=== PATIENT | female | born 1960 | race Caucasian/White ===

== ENCOUNTER 2017-03-12 08:25 | Day surgery (SDC) | payer OTHER ==
[~2017-03-12] VITALS: Ht 165.1 cm; Wt 81.0 kg
[~2017-03-12 08:25] MED LIST: 0.9% Sodium Chloride 1,000 ML IV SCH; CHOL500011 PO; CRAN500T2 PO; GARL580C PO; GLIM2TAB2 PO; HYG25 PO; LACT1CAP65 PO; METF500T4 PO; Sodium Chloride LOK Flush 10 mL Syringe IV PRN; TYRO500C2 PO; VITA150T PO; [UNRECOGNIZED DRUG - CODE] PO; fentaNYL-PF 50 mCg/mL 2 mL Inj IVPUSH PRN
[2017-03-12 08:40] VITALS: BP 137/83; PULSE 87; RESP 14; O2SAT 98
[2017-03-12 09:21] VITALS: BP 135/83; PULSE 14; RESP 14; O2SAT 96
[2017-03-12 09:30] VITALS: BP 127/70; PULSE 88; RESP 14; O2SAT 97
[2017-03-12 09:34] VITALS: BP 121/75; PULSE 89; RESP 14; O2SAT 96
--- NOTE | 2017-03-12 09:34 | ENDO ---
[address] [address] ENDOSCOPY PROCEDURE PATIENT: CRICKET SEGOVIA : 1960 MR#: [id number] ADMIT: 03/12/2017 JOB ID: [id number] PROCEDURE: Esophagogastroduodenoscopy. INDICATION: Epigastric pain. ASA CLASSIFICATION: 2. MALLAMPATI SCORE: 2. MEDICATIONS: Versed 5 mg, fentanyl 100 mcg. INSTRUMENT USED: [id number]. PROCEDURE DETAILS: After informed consent was obtained, the patient was brought into the GI suite, where she was placed on oxygen via nasal cannula and monitored with continuous pulse oximeter, telemetry, and blood pressure monitoring. A time-out was performed. Then, she was placed in a left lateral decubitus position. Medications were administered for sedation. A bite block was placed. The standard EGD scope was then inserted through the bite block and advanced under direct visualization to the second portion of duodenum without difficulty. FINDINGS: 1. Normal-appearing duodenal bulb, first and second portion. Multiple random biopsies were obtained. 2. Normal-appearing pylorus, antrum and gastric body. 3. Retroflexed views in the gastric body revealed a normal-appearing cardia and fundus. 4. Multiple random biopsies were obtained throughout the antrum and body of stomach. 5. The GE junction was at approximately 39 cm, was slightly irregular. Multiple biopsies were obtained in the distal esophagus. There was also mild inflammation with a superficial erosion noted in the distal esophagus suggestive of mild esophagitis. The remainder of the esophagus otherwise unremarkable. IMPRESSION: Mild esophagitis. Otherwise normal exam to second portion of duodenum. RECOMMENDATIONS: 1. Await biopsy results. 2. Continue PPI daily. 3. Follow up in GI clinic. COMPLICATIONS: None. ESTIMATED BLOOD LOSS: Less than 5 mL.
--- NOTE | 2017-03-13 16:18 | PATH ---
SURGICAL PATHOLOGY Attending Physician:Jc Aguayo CASE STATUS: Signed Out PATIENT NAME: CRICKET SEGOVIA PID: [id number] : 1960 DATE COLLECTED:03/12/2017 16:24 SPECIMEN: 1: Duodenum, Biopsy 2: Duodenum, Biopsy 3: Gastric, Biopsy 4: Esophagus, Biopsy CLINICAL HISTORY: 1. DUODENUM BIOPSY 2. DUODENUM BULB NODULE 3. GASTRIC BIOPSY 4. DISTAL ESOPHAGUS BIOPSY FINAL DIAGNOSIS: 1. Duodenum, Biopsy: Duodenal mucosa with no diagnostic abnormality. Negative for active inflammation, features of sprue, dysplasia, or malignancy. 2. Duodenal Bulb Nodule, Biopsy: Duodenal mucosa with involvement by heterotopic gastric mucosa. Negative for intestinal metaplasia, dysplasia, and malignancy. No definite H. pylori organisms identified by H&E stain. 3. Gastric Biopsy: Portions of gastric body-type mucosa with no diagnostic abnormality. No definite H. pylori organisms identified by H&E stain. Negative for intestinal metaplasia, dysplasia, and malignancy. 4. Distal Esophagus, Biopsy: Detached portions of squamous mucosa with no diagnostic abnormality; negative for dysplasia and malignancy. Detached fragments of inflamed columnar mucosa with intestinal metaplasia, consistent with Laguerre' s esophagus, in the appropriate clinical setting. Negative for dysplasia and malignancy. ICD10: K22.7 GROSS DESCRIPTION: The specimen is received in four formalin filled containers labeled with the patient's name. 1). The specimen is sublabeled "duodenum" and consists of 3 tiny portions of tissue which aggregate to 0.4 x 0.3 x 0.2 CM. The specimen is entirely submitted in cassette 1A. 2). The specimen is sublabeled "duodenum bulb nodule" and consists of 2 portions of tissue which aggregate to 0.3 x 0.2 x 0.2 CM. The specimen is entirely submitted in cassette 2A. 3). The specimen is sublabeled "gastric" and consists of 3 portions of tissue which aggregate to 0.4 x 0.3 x 0.2 CM. The specimen is entirely submitted in cassette 3A. 4). The specimen is sublabeled "distal esophagus" and consists of a 0.5 x 0.2 x 0.2 CM portion of tissue which is entirely submitted in cassette 4A. 03/12/2017 [facility] ICD-9 CODES: CPT CODES: 1: 07083 2: 04717 3: 39135 4: 88967 Electronically Signed Out Sahara Trejo MD [facility] [address], [place] [address] Technical component performed at [facility], [address], [place], [address]
== END 2017-03-12 23:59 | disposition home or self-care (01) ==
LOC: END 08:25
PROVIDERS: ATTEND Internal Medicine Gastroenterology
DX: K22.70 Barrett's esophagus without dysplasia (principal); R10.13 Epigastric pain; R79.89 Other specified abnormal findings of blood chemistry; R14.0 Abdominal distension (gaseous); R19.4 Change in bowel habit; E11.9 Type 2 diabetes mellitus without complications; E78.1 Pure hyperglyceridemia; F39 Unspecified mood [affective] disorder; B38.9 Coccidioidomycosis, unspecified; Z79.84 Long term (current) use of oral hypoglycemic drugs
CPT/HCPCS: 43239; 88305; 99152; J2250; J3010; J7030

== ENCOUNTER 2017-03-13 13:37 | Emergency (ER) | payer OTHER ==
[~2017-03-13] VITALS: Ht 165.1 cm; Wt 81.8 kg
[~2017-03-13 13:37] MED LIST changes: -0.9% Sodium Chloride 1,000 ML IV SCH; -Sodium Chloride LOK Flush 10 mL Syringe IV PRN; -fentaNYL-PF 50 mCg/mL 2 mL Inj IVPUSH PRN
[2017-03-13 14:03] VITALS: BP 156/85; PULSE 84; RESP 15; O2SAT 97
[2017-03-13 16:05] LABS: BASOPHILS % (AUTO) 0.5 % (0-3); EOSINOPHILS % (AUTO) 2.1 % (0-5); MONOCYTES % (AUTO) 10.2 % (4-12); Mean Corpuscular Hemoglobin 31.5 pg (27.0-35.0); Mean Corpuscular Volume 84.3 fL (81-100); NEUTROPHILS % (AUTO) 46.9 % (40-74); Platelet Count 223 bil/L (150-400)
--- NOTE | 2017-03-13 16:16 | ED.REPORT ---
HPI-General Illness Date of Service March 13, 2017 ED Provider: Zay Sanchez MD 56 year old female with a history of HTN, DM, Valley Fever and a recent endoscopy by Dr. Juárez yesterday, who presents to the ER due to burning epigastric/R sided chest pain since she woke up this AM. Pt had a EGD procedure yesterday with biopsies. Pt had not symptoms after this procedure until she woke up. Associated symptoms include lightheadedness, cough and nausea. Pt denies fever, syncope and abd pain. Nursing Notes Stated Complaint: SWOLLEN GLANDS, LUNGS HURT Chief Complaint: General Complaint Nursing Notes Reviewed: Yes Allergies: Coded Allergies: morphine (Verified Adverse Reaction, Unknown, 08/07/16) Scheduled Chlorthalidone (Chlorthalidone) 25 Mg Tablet 25 MG PO DAILY Cholecalciferol (Vitamin D3) (Vitamin D3) 5,000 Unit Tablet 6,000 UNIT PO DAILY Cranberry Extract (Cranberry) 500 Mg Tablet 600 MG PO DAILY Garlic (Garlic) 580 Mg Capsule 700 MG PO DAILY Glimepiride (Glimepiride) 2 Mg Tablet 2 MG PO BIDWM Lactobacillus Acidophilus (Probiotic) 1 Each Capsule 2 EACH PO DAILY Lecithin (Lecithin) 1,200 Mg Capsule 1,200 MG PO DAILY Metformin (Metformin) 500 Mg Tablet 1,000 MG PO BID Tyrosine (l-Tyrosine) 500 Mg Capsule 500 MG PO DAILY Vitamin B Complex & Vit C No.4 (Super B Complex) 150 Mg Tablet 150 MG PO DAILY General Time Seen by MD: 16:14 Chief Complaint Other (chest burning) Hx Obtained From: Patient Arrived By: Walk-in Sudden in Onset?: No Onset Occurred: 9 - 12 hours ago Symptom Duration: Since onset Location: : Chest Quality: Burning Radiation: : Does not radiate Severity: Current: Moderate Pertinent Negative: Relieved by nothing Recent Healthcare: Recent doctor visit Past Medical History Past Medical History Hypertension Diabetes mellitus Migraines Valley Fever Denies: Cancer Past Surgical History Lung biopsy October 2015 Spinal fusion Smoking History Current Every Day Smoker Social History Alcohol Use: Denies alcohol use (Quit 10 years ago) Drug Use: THC Ambulatory Status Independent Review of Systems Full Review of Systems Constitutional: Denies: Chills, Fever Respiratory: Reports: Non-productive cough, Denies: Shortness of breath Cardiovascular: Reports: Chest pain, Denies: Syncope GI: Reports: Nausea, Denies: Abdominal pain, Vomiting Neurologic: Reports: Lightheaded, Denies: Change LOC, Syncope Complete sys rev & neg: except as marked. Physical Exam Vital Signs Vital Signs Date Time Temp Pulse Resp B/P Pulse Ox O2 Delivery O2 Flow Rate FiO2 03/13/17 19:57 36.2 97 18 161/98 97 Room Air 03/13/17 16:38 36.6 84 20 145/75 98 Room Air 03/13/17 14:03 36.6 84 15 156/85 97 Room Air Initial VS: Reviewed General/Constitutional: Well-developed, Well-nourished Head / Eyes: Atraumatic, Normocephalic, PERRL ENT: Mucous membranes moist, Conjunctiva normal, No scleral icterus Neck: Supple, Non-tender, Full range of motion Respiratory: Breath sounds normal, Clear to auscultation, No respiratory distress Cardiovascular: Regular rate & rhythm, Heart sounds normal, Intact distal pulses Abdomen / GI: Soft, Non-tender, No guarding, No rebound, No distention Extremities: Vascular intact, Neuro intact, No swelling, No tenderness Skin: Warm, Dry, No cyanosis Neurologic: Alert, Oriented, Nonfocal Psychiatric: Mood/affect normal, Behavior normal, Normal thought content Interpretation & Diagnostics Lab Results Interpretation Result Diagram: 03/13/17 1551 03/13/17 1551 Test 03/13/17 15:51 03/13/17 17:39 White Blood Count 7.3th/mm3 (3.8-10.1) Red Blood Count 4.92mil/mm3 (3.90-5.20) Hemoglobin 15.5g/dL (12.0-15.6) Hematocrit 41.5% (35.0-46.0) Mean Corpuscular Volume 84.3fL (81-100) Mean Corpuscular Hemoglobin 31.5pg (27.0-35.0) Mean Corpuscular Hemoglobin Concent 37.3% (32.0-37.0) Red Cell Distribution Width 12.7% (12.3-15.4) Platelet Count 223bil/L (150-400) Neutrophils (%) (Auto) 46.9% (40-74) Lymphocytes (%) (Auto) 40.0% (14-46) Monocytes (%) (Auto) 10.2% (4-12) Eosinophils (%) (Auto) 2.1% (0-5) Basophils (%) (Auto) 0.5% (0-3) Sodium Level 136mEq/L (134-144) Potassium Level 4.6mEq/L (3.5-5.2) Chloride Level 98mEq/L (97-108) Carbon Dioxide Level 23mmol/L (18-29) Blood Urea Nitrogen 9mg/dL (6-24) Creatinine 0.48mg/dL (0.57-1.00) Estimat Glomerular Filtration Rate 190mL/min (>59) Glucose Level 97mg/dL (60-99) Calcium Level 10.1mg/dL (8.5-10.1) Magnesium Level 1.7mg/dL (1.6-2.6) Total Bilirubin 0.5mg/dL (0.0-1.2) Aspartate Amino Transf (AST/SGOT) 5U/L (0-50) Alanine Aminotransferase (ALT/SGPT) 5U/L (0-32) Alkaline Phosphatase 103U/L (25-150) Troponin T < 0.010ug/L (0.0-0.011) Total Protein 7.5g/dL (6.4-8.4) Albumin 4.3g/dL (3.4-5.0) Lipase 23U/L (13-60) Hold Colon Top Tube Received (Received) Hold Urine Received (Received) General Lab Results Interp 1: Labs reviewed ECG Interpretation Time: 16:49 Interpreted by: ED physician Normal ECG Interpretation: Normal rate (87), Normal sinus rhythm X-Ray Chest Interpretation Chest Xray Interpretation: IMPRESSION: No acute disease is seen in the two-view chest. There some linear density extending from the left hilum laterally consistent with old scarring. It is unchanged. No abnormal air collections are seen. No abnormal fluid collections are seen. Dictated by: Jameson Castro M.D. on 03/13/2017 at 17:29 View: AP & lat Interpretation / Wet Read by: Interpret - Radiologist CT Chest Interpretation IMPRESSION: 1. There are no changes in the mediastinum or upper abdomen to suggest perforation during the EGD. 2. Left lung changes consistent with valley fever, essentially unchanged since CT scans of August of 2015. Dictated by: Jameson Castro M.D. on 03/13/2017 at 19:47 Study type: Chest CT no contrast Interpretation / Wet Read by: Interpret - Radiologist Re-Eval/Medical Decision Time of Eval: 18:02 Re-Evaluation/Progress Note: Pt understands and agrees with plan for GI study. Time of Eval: 18:57 Re-Evaluation/Progress Note: Discussed diagnostic options. Pt would like the CT vs. waiting till 2200 for the radiologist. Time of Eval: 20:00 Re-Evaluation/Progress Note: Pt resting comfortably. Updated pt of labs, ECG and imaging results. Discussed plan for discharge and follow up. All questions addressed. Consultation : Referral / Consult Name: Aashish Phillips MD Consulted With: On-call physician (GI) Call Returned at: 17:34 Note: Recommended gastrografin upper GI study. Counseled Regarding: Diagnosis, Lab results, Need for follow-up, When/why to return to ED Discharge & Departure Primary Impression: Chest pain Chest pain type: unspecified Qualified Code: R07.9 - Chest pain, unspecified Disposition: Home Discharge Condition All VS Reviewed: Yes Condition: Stable Patient Instructions: Chest Pain (ED) Additional Instructions: No dangerous cause for your chest pain is discovered today. Specifically, no evidence of injury to the esophagus from the study you had yesterday. Regarding the chronic chest pain, I recommend that you follow up with your primary care provider to discuss this. Referrals: Albaro Alex DO (PCP) Scribe Attestation Portions of this note were transcribed by Nelli Bond. I, (Dr. Sanchez) personally performed the history, physical exam and medical decision-making; I reviewed and confirmed the accuracy of the information in the transcribed note. Signed by: Nelli Bond. Dilciaiblashawn, 03/13/20172020 copies to: Albaro Alex Kirk H MD March 13, 2017 16:16 Nelli Bond March 13, 2017 16:21
[2017-03-13 16:26] LABS: Magnesium 1.7 mg/dL (1.6-2.6)
[2017-03-13 16:38] VITALS: BP 145/75; PULSE 84; RESP 20; O2SAT 98
--- NOTE | 2017-03-13 17:32 | DRSVH ---
PROCEDURE: X-RAY CHEST, TWO VIEWS ([id number]) INDICATIONS: chest pain, STATUS POST eNdoscopy TECHNIQUE: 2 views of the chest were acquired. COMPARISON: [facility], CR, XR CHEST 2VW, 08/07/2016, 16:18. FINDINGS: Surgical changes and devices: bread molder leads are seen over the chest. Lungs and pleura: No pleural effusions or pneumothorax. Lungs are clear. Mediastinum: Mediastinal contours are normal. No mediastinal air or abnormal density is seen. Heart size is normal. Bones and chest wall: No suspicious bony abnormalities. Soft tissues appear unremarkable. No subdi aphragmatic air is seen. IMPRESSION: No acute disease is seen in the two-view chest. There some linear density extending from the left hil um laterally consistent with old scarring. It is unchanged. No abnormal air collections are seen. No abnormal fluid collections are seen. Dictated by: Jameson Castro M.D. on 03/13/2017 at 17:29 Approved by: Jameson Castro M.D. on 03/13/2017 at 17:30
--- NOTE | 2017-03-13 19:52 | DRSVH ---
PROCEDURE: CT CHEST WITHOUT CONTRAST ([id number]) INDICATIONS: chest pain after EGD TECHNIQUE: Noncontrast 5 mm thick sections acquired from the pulmonary apices to the posterior costophrenic angl es. 7 mm thick coronal and sagittal MIP reformats were then acquired. For radiation dose reduction, the following was used: automated exposure control, adjustment of mA and/or kV according to patient size. COMPARISON: None. FINDINGS: Image quality: good Lungs and pleura: No acute air space opacities. Somewhat irregular but defined lesion in the left up per lobe posteriorly at the level of the hilum is essentially unchanged with better visualization of a central cavitary component compared to studies from 2015. 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 No pleural effusions or pneumothorax. Central and peripher al airways are patent and normal in caliber. Mediastinum: Heart size is normal. No pericardial effusion. No mediastinal adenopathy by size crit eria. There is no evidence of extravasation of contrast or extraluminal air within the mediastinum o r upper abdomen. Thoracic aorta and central pulmonary arteries are normal in size. Esophagus is norm al in caliber. No hiatal hernia. Bones and chest wall: No suspicious bony lesions. No vertebral body compression fractures. No axil bravo or supraclavicular adenopathy by size criteria. Thyroid gland is within normal limits. Abdomen: Visualized upper abdominal solid organs and bowel loops appear normal in the absence of con trast. IMPRESSION: 1. There are no changes in the mediastinum or upper abdomen to suggest perforation during the EGD. 2. Left lung changes consistent with valley fever, essentially unchanged since CT scans of August. Dictated by: Jameson Castro M.D. on 03/13/2017 at 19:47 Approved by: Jameson Castro M.D. on 03/13/2017 at 19:50
[2017-03-13 19:57] VITALS: BP 161/98; PULSE 97; RESP 18; O2SAT 97
== END 2017-03-13 20:01 | disposition home or self-care (01) ==
LOC: SED 13:37
DX: R07.9 Chest pain, unspecified (principal); I10 Essential (primary) hypertension; E11.9 Type 2 diabetes mellitus without complications; F17.200 Nicotine dependence, unspecified, uncomplicated; F12.10 Cannabis abuse, uncomplicated; Z79.84 Long term (current) use of oral hypoglycemic drugs; Z88.5 Allergy status to narcotic agent